=== PATIENT | female | born 1980 | race Caucasian/White ===

== ENCOUNTER 2017-04-06 16:33 | Emergency (ER) | payer MEDICAID ==
[~2017-04-06] VITALS: Ht 154.9 cm; Wt 55.0 kg
[2017-04-06 16:34] VITALS: BP 117/78
[2017-04-06] MEDS ORDERED: ACETAMINOPHEN 325MG TABLET PO ONE (17:30)
== END 2017-04-06 18:44 | disposition home or self-care (01) ==
LOC: ER 16:46
DX: R07.9 Chest pain, unspecified (principal); V89.2XXA Person injured in unspecified motor-vehicle accident, traffic, initial encounter; Y92.410 Unspecified street and highway as the place of occurrence of the external cause; Y99.8 Other external cause status
CPT/HCPCS: 71010; 81025; 99283